=== PATIENT | male | born 1945 | race Caucasian/White ===

== ENCOUNTER → 2018-12-24 | Day surgery (SDC) | payer MEDICARE, BC ==
[~2018-12-24] MED LIST: Acetaminophen/HYDROcodone 325-5 MG Tab PO PRN; Dexamethasone 10 MG/ML SDV ONE; Glycopyrrolate 0.2 MG/ML SDV ONE; Lactated Ringers 1,000 ML IV SCH; Midazolam 1 MG/ML 2 ML SDV ONE; Morphine 2 MG/ML Syringe IVPUSH PRN; Neostigmine Methylsulfate 10 MG/10 ML MDV ONE; Ondansetron 4 MG/2 ML SDV IVPUSH PRN; Ondansetron 4 MG/2 ML SDV ONE; Propofol 200 MG/20 ML SDV ONE; Rocuronium 100 MG/10 ML MDV ONE; Sodium Chloride 0.9% 10 ML Syringe FLUSH PRN; Succinylcholine 200 MG/10 ML MDV ONE; fentaNYL 100 MCG/2 ML SDV IVPUSH PRN; fentaNYL 250 MCG/5 ML SDV ONE
--- NOTE | 2018-12-24 08:52 | PCM.HPR ---
H & P Addendum review - H & P Addendum Review Date of Original H & P: 12/17/18 Date Reviewed: 12/24/18 Time Reviewed: 08:52 Patient was Examined: No Changes
--- NOTE | 2018-12-24 10:04 | PCM.OPNOTE ---
- General Post-Op/Procedure Note Date of Surgery/Procedure: 12/24/18 Operative Procedure(s): Lap Laura Pre Op Diagnosis: Biliary Colic Post-Op Diagnosis: Same Anesthesia Technique: General ET Tube Primary Surgeon: Jamil Dennison Anesthesia Provider: Faith Najera EBL in mLs: 5 Complications: None Condition: Good
--- NOTE | 2018-12-24 15:25 | OR ---
Date of Procedure: 12/24/2018 PREOPERATIVE DIAGNOSIS: Biliary colic with sludge. POSTOPERATIVE DIAGNOSIS: Biliary colic with sludge. PROCEDURE: Laparoscopic cholecystectomy. ANESTHESIA: General. DESCRIPTION OF PROCEDURE: The patient was brought to the operating room where general endotracheal anesthesia was administered. Abdomen was prepped with ChloraPrep and draped sterilely. An infraumbilical incision was made and extended into the peritoneal cavity without difficulty. The Frances cannulator was introduced and pneumoperitoneum obtained. Remaining three 5 mm ports were placed in the usual positions. Gallbladder was grasped and retracted cephalad. There was a fair amount of omentum in the way, which was swept inferiorly. The stomach was decompressed with an orogastric tube. The cystic duct was dissected free without difficulty. Initially, I could not identify the cystic artery, but this was adjacent to the cystic duct and coursing along it. This was isolated and doubly clipped proximally and once distally and then transected. The anatomy of the cystic duct was reconfirmed and could be seen entering the gallbladder and extending towards the common bile duct. This was doubly clipped proximally and once distally and then transected. Gallbladder was removed from the bed of the liver without difficulty. A smaller posterior branch of the cystic artery was present, which was doubly clipped proximally and cauterized distally. Once the gallbladder was completely freed up, was brought out through the umbilical incision and sent for pathology review. Right upper quadrant was irrigated and hemostasis was assured. All clips were in place. Ports were removed under direct vision and remained hemostatic. Umbilical fascia was closed with [id number] 0 Vicryl. Skin was closed with 4-0 Vicryl subcuticular sutures. Benzoin and Steri-Strips were placed and Band-Aids applied. The patient tolerated the procedure well and returned to Recovery in stable condition. ESTIMATED BLOOD LOSS: Less than 5 mL. MARTIN GONCALVES MD /[id number]
== END | disposition home or self-care (01) ==
LOC: LL.SDS 07:46
PROVIDERS: ATTEND Surgery
DX: K80.51 Calculus of bile duct without cholangitis or cholecystitis with obstruction (principal); K81.2 Acute cholecystitis with chronic cholecystitis; I10 Essential (primary) hypertension; E78.5 Hyperlipidemia, unspecified; I25.10 Atherosclerotic heart disease of native coronary artery without angina pectoris; Z79.82 Long term (current) use of aspirin; Z79.899 Other long term (current) drug therapy
CPT/HCPCS: 00790; J0330; J1100; J2250; J2405; J2704; J2710; J3010; J3490; J7120